=== PATIENT | female | born 1940 | race Caucasian/White ===

== ENCOUNTER → 2016-05-22 | Outpatient (CLI) | payer OTHER ==
[~2016-05-22] MED LIST: INSUPOW; [UNRECOGNIZED DRUG - OTHER]
[2016-05-22 09:39] LABS: Basophils # (auto) 0 uL; Basophils % (auto) 0.4 % (0.0-2.0); Eosinophils # (auto) 0.1 uL; Eosinophils % (auto) 1.9 % (0.0-7.0); Hematocrit 42.5 % (36.0-46.0); Hemoglobin 14.1 g/dL (12.2-16.2); Lymphocytes # (auto) 2.1 uL; Lymphocytes % (auto) 30.5 % (10.0-50.0); Mean Corpuscular Hemoglobin 29.1 pg (28.0-32.0); Mean Corpuscular Hgb Conc. 33.1 g/dL (32.0-36.0); Mean Platelet Volume 7.9 fL (7.4-10.4); Monocytes # (auto) 0.4 uL; Monocytes % (auto) 5.6 % (0.0-12.0); Neutrophils # (auto) 4.2 uL; Neutrophils % (auto) 61.6 % (37.0-80.0); Platelet Count (auto) 330 10^3/uL (140-450); Red Cell Distribution Width 14.1 % (11.6-16.0); White Blood Cell 6.9 10^3/uL (4.4-10.8)
[2016-05-22 09:53] LABS: Urine Bilirubin Negative (Negative); Urine Blood Negative /uL (Negative); Urine Color Yellow (Yellow); Urine Glucose Normal (Normal); Urine Ketone Negative (Negative); Urine Mucus FEW (None Seen); Urine RBC 5 /hpf (0 - 4); Urine Squamous Epithelial Cell MOD /hpf (<5); Urine Urobilinogen Normal (Negative); Urine pH 5.5 (5.0-8.0)
[2016-05-22 09:57] LABS: Albumin 3.7 g/dL (3.4-5.0); BUN/Creatinine Ratio 21.4; Bilirubin, Total 0.7 mg/dL (0.2-1.0); Calcium 9.7 mg/dL (8.5-10.1); Potassium 4.2 mmol/L (3.5-5.1); Total Protein 7.7 g/dL (6.4-8.2)
[2016-05-22 09:59] LABS: Urine Nitrite POSITIVE (Negative)
== END | disposition home or self-care (01) ==
LOC: LAB 07:53
PROVIDERS: ATTEND Internal Medicine
DX: I10 Essential (primary) hypertension (principal); E78.00 Pure hypercholesterolemia, unspecified; E11.9 Type 2 diabetes mellitus without complications; E55.9 Vitamin D deficiency, unspecified
CPT/HCPCS: 36415; 80053; 80061; 81001; 82043; 82306; 83036; 84443; 85025

== ENCOUNTER → 2017-10-25 | Outpatient (CLI) | payer OTHER ==
[2017-10-25 08:14] LABS: Basophils # (auto) 0 uL; Basophils % (auto) 0.4 % (0.0-2.0); Eosinophils # (auto) 0.2 uL; Eosinophils % (auto) 2.6 % (0.0-7.0); Hematocrit 41.8 % (36.0-46.0); Hemoglobin 13.7 g/dL (12.2-16.2); Lymphocytes % (auto) 31.8 % (10.0-50.0); Mean Corpuscular Hemoglobin 29.2 pg (28.0-32.0); Mean Corpuscular Hgb Conc. 32.7 g/dL (32.0-36.0); Mean Corpuscular Volume 89.4 fL (80.0-100.0); Monocytes # (auto) 0.5 uL; Monocytes % (auto) 8.4 % (0.0-12.0); Neutrophils # (auto) 3.5 uL; Neutrophils % (auto) 56.8 % (37.0-80.0); Platelet Count (auto) 247 10^3/uL (140-450); Red Blood Cells 4.68 10^6/uL (4.0-5.20); White Blood Cell 6.2 10^3/uL (4.4-10.8)
[2017-10-25 08:56] LABS: Albumin 3.6 g/dL (3.4-5.0); BUN/Creatinine Ratio 23.4; Bilirubin, Total 1.1 mg/dL (0.2-1.0); Calcium 9.3 mg/dL (8.5-10.1); Potassium 3.6 mmol/L (3.5-5.1); Total Protein 7.7 g/dL (6.4-8.2)
[2017-10-25 09:34] LABS: Urine Specific Gravity 1.027 (1.001-1.035)
[2017-10-25 09:35] LABS: Urine Blood Negative /uL (Negative)
[2017-10-25 09:36] LABS: Urine WBC 6 /hpf (0 - 5)
[2017-10-25 09:38] LABS: Urine Bacteria MODERATE /hpf (None Seen)
== END | disposition home or self-care (01) ==
LOC: LAB 07:26
DX: Z00.01 Encounter for general adult medical examination with abnormal findings (principal); E78.2 Mixed hyperlipidemia; I12.9 Hypertensive chronic kidney disease with stage 1 through stage 4 chronic kidney disease, or unspecified chronic kidney disease; E11.22 Type 2 diabetes mellitus with diabetic chronic kidney disease; N18.3 Chronic kidney disease, stage 3 (moderate); J44.9 Chronic obstructive pulmonary disease, unspecified
CPT/HCPCS: 36415; 80053; 80061; 81001; 82043; 83036; 84443; 85025

== ENCOUNTER → 2018-01-29 | Outpatient (CLI) | payer OTHER | END | disposition home or self-care (01) | LOC: LAB 11:00 | PROVIDERS: ATTEND Physician Assistant | DX: D04.62 Carcinoma in situ of skin of left upper limb, including shoulder (principal) ==

== ENCOUNTER → 2018-04-25 | Outpatient (CLI) | payer OTHER | END | disposition home or self-care (01) | LOC: XYW 08:42 | PROVIDERS: ATTEND Internal Medicine | DX: I07.1 Rheumatic tricuspid insufficiency (principal); I10 Essential (primary) hypertension; E11.9 Type 2 diabetes mellitus without complications | CPT/HCPCS: 93306 ==

== ENCOUNTER → 2018-05-13 | Outpatient (CLI) | payer OTHER ==
[~2018-05-13] VITALS: Ht 154.9 cm; Wt 62.1 kg
[~2018-05-13] MED LIST changes: +ADENOSINE 52 MG in GIVE UN-DILUTED 0 ML IV STA
[2018-05-13 09:48] VITALS: BP 151/71
== END | disposition home or self-care (01) ==
LOC: XY 08:39
PROVIDERS: ATTEND Internal Medicine
DX: Z01.818 Encounter for other preprocedural examination (principal)
CPT/HCPCS: 78452; 93017; A9500; J0153

== ENCOUNTER → 2018-06-03 | Outpatient (CLI) | payer OTHER ==
[~2018-06-03] MED LIST changes: -ADENOSINE 52 MG in GIVE UN-DILUTED 0 ML IV STA; +B-CO1TAB32 PO; +BENZ1CAP24 PO; +CALC-386 OR; +DILT240C PO; +HYDR12.56 PO; +INSDRIP SC; +INSUINJ2 SC; +LACTCAP35 OR; +LOSA-46 PO; +OMEG100078 PO
[2018-06-03 10:48] LABS: Urine Bacteria NONE SEEN /hpf (None Seen); Urine Blood TRACE /uL (Negative); Urine Hyaline Cast MOD /lpf (0 - 2); Urine Mucus FEW (None Seen); Urine Specific Gravity 1.029 (1.001-1.035); Urine WBC 83 /hpf (0 - 5)
[2018-06-03 10:50] LABS: Basophils # (auto) 0 uL; Basophils % (auto) 0.4 % (0.0-2.0); Eosinophils # (auto) 0.1 uL; Eosinophils % (auto) 0.6 % (0.0-7.0); Hematocrit 44.1 % (36.0-46.0); Hemoglobin 14.9 g/dL (12.2-16.2); Lymphocytes # (auto) 1.8 uL; Lymphocytes % (auto) 23.5 % (10.0-50.0); Mean Corpuscular Hemoglobin 30.1 pg (28.0-32.0); Mean Corpuscular Hgb Conc. 33.7 g/dL (32.0-36.0); Mean Corpuscular Volume 89.2 fL (80.0-100.0); Monocytes # (auto) 0.4 uL; Monocytes % (auto) 5.6 % (0.0-12.0); Neutrophils # (auto) 5.5 uL; Neutrophils % (auto) 69.9 % (37.0-80.0); Nucleated Red Blood Cells % 0.1 %; Platelet Count (auto) 273 10^3/uL (140-450); Red Blood Cells 4.94 10^6/uL (4.0-5.20); White Blood Cell 7.9 10^3/uL (4.4-10.8)
[2018-06-03 11:26] LABS: Potassium 4.1 mmol/L (3.5-5.1)
[2018-06-03 11:46] LABS: Albumin 3.9 g/dL (3.4-5.0); BUN/Creatinine Ratio 19.8; Bilirubin, Total 0.7 mg/dL (0.2-1.0); CRP High Sensitivity 0.28 mg/dL (< 0.3); Calcium 10.1 mg/dL (8.5-10.1); Total Protein 8.2 g/dL (6.4-8.2)
[2018-06-03 12:07] LABS: Free T4 (Free Thyroxine) 1.26 ng/dL (0.89-1.76); T3 Total 1.29 ng/mL (0.60-1.81)
== END | disposition home or self-care (01) ==
LOC: LAB 10:27
PROVIDERS: ATTEND Internal Medicine
DX: I12.9 Hypertensive chronic kidney disease with stage 1 through stage 4 chronic kidney disease, or unspecified chronic kidney disease (principal); E11.22 Type 2 diabetes mellitus with diabetic chronic kidney disease; N18.3 Chronic kidney disease, stage 3 (moderate); E78.49 Other hyperlipidemia
CPT/HCPCS: 36415; 80053; 80061; 81001; 82306; 82607; 83036; 84439; 84443; 84480; 85025; 86141

== ENCOUNTER → 2018-06-05 | Day surgery (SDC) | payer OTHER ==
[2018-06-03 12:54] LABS: INR 0.94 (0.9-1.15); Partial Thromboplastin Time 28.2 sec (23.78-33.04); Prothrombin Time 10.1 sec (9.27-12.13)
[~2018-06-05] VITALS: Ht 154.9 cm; Wt 64.9 kg
[~2018-06-05] MED LIST changes: +GLYCOPYRROLATE 0.2 MG/ML 1ML VIAL IV ONE; -INSUPOW; +MIDAZOLAM HCL 1MG/1ML-2 ML VIAL ONE; +NEOSTIGMINE 1 MG/ML INJ (10mg/10ML VIAL) IV ONE; +ONDANSETRON HCL 4 MG/2 ML VIAL IV ONE; +PROPOFOL 10 MG/ML 20 ML IV ONE; +ROCURONIUM 10MG/ML 10ML VIAL IV ONE; -[UNRECOGNIZED DRUG - OTHER]; +ceFAZolin 1GM/50ML 50 ML IV ONE; +ePHEDrine SULFATE 50 MG/ML AMP IV PRN; +fentaNYL CITRATE 100 MCG/2 ML VL IV PRN; +fentaNYL CITRATE 100 MCG/2 ML VL ONE; +hydrALAZINE HCL 20 MG/ML VL IV PRN
[2018-06-05 13:05] VITALS: BP 124/57
== END | disposition home or self-care (01) ==
LOC: SUR 09:36
PROVIDERS: ATTEND Surgery
DX: D04.62 Carcinoma in situ of skin of left upper limb, including shoulder (principal); L57.0 Actinic keratosis; I10 Essential (primary) hypertension; Z98.890 Other specified postprocedural states; Z79.899 Other long term (current) drug therapy
CPT/HCPCS: 11604; 36415; 82962; 85610; 85730; J0690; J2250; J2704; J3010

== ENCOUNTER 2018-06-06 10:45 | Emergency (ER) | payer OTHER ==
[~2018-06-06] VITALS: Ht 154.9 cm; Wt 64.9 kg
[~2018-06-06 10:45] MED LIST changes: -GLYCOPYRROLATE 0.2 MG/ML 1ML VIAL IV ONE; -MIDAZOLAM HCL 1MG/1ML-2 ML VIAL ONE; -NEOSTIGMINE 1 MG/ML INJ (10mg/10ML VIAL) IV ONE; -ONDANSETRON HCL 4 MG/2 ML VIAL IV ONE; -PROPOFOL 10 MG/ML 20 ML IV ONE; -ROCURONIUM 10MG/ML 10ML VIAL IV ONE; -ceFAZolin 1GM/50ML 50 ML IV ONE; -ePHEDrine SULFATE 50 MG/ML AMP IV PRN; -fentaNYL CITRATE 100 MCG/2 ML VL IV PRN; -fentaNYL CITRATE 100 MCG/2 ML VL ONE; -hydrALAZINE HCL 20 MG/ML VL IV PRN
[2018-06-06 11:45] LABS: Basophils # (auto) 0 uL; Basophils % (auto) 0.2 % (0.0-2.0); Eosinophils # (auto) 0 uL; Eosinophils % (auto) 0.1 % (0.0-7.0); Hematocrit 39.6 % (36.0-46.0); Hemoglobin 13.3 g/dL (12.2-16.2); Lymphocytes # (auto) 0.9 uL; Mean Corpuscular Hgb Conc. 33.5 g/dL (32.0-36.0); Mean Corpuscular Volume 89.6 fL (80.0-100.0); Monocytes # (auto) 0.3 uL; Monocytes % (auto) 3.2 % (0.0-12.0); Neutrophils # (auto) 9.6 uL; Neutrophils % (auto) 88.5 % (37.0-80.0); Platelet Count (auto) 246 10^3/uL (140-450); Red Blood Cells 4.42 10^6/uL (4.0-5.20); Red Cell Distribution Width 14.1 % (11.8-14.3); White Blood Cell 10.8 10^3/uL (4.4-10.8)
[2018-06-06 12:05] LABS: Albumin 3.4 g/dL (3.4-5.0); Calcium 9.1 mg/dL (8.5-10.1); Potassium 4.1 mmol/L (3.5-5.1)
[2018-06-06 12:07] LABS: BUN/Creatinine Ratio 17.6
[2018-06-06 12:12] LABS: Bilirubin, Total 0.7 mg/dL (0.2-1.0); Total Protein 7.3 g/dL (6.4-8.2)
[2018-06-06 13:47] LABS: Urine Bacteria MOD /hpf (None Seen); Urine Blood Negative /uL (Negative); Urine Specific Gravity 1.011 (1.001-1.035); Urine WBC 2 /hpf (0 - 5)
[2018-06-06 14:32] VITALS: BP 135/58
== END 2018-06-06 14:41 | disposition home or self-care (01) ==
LOC: ER 10:49
DX: E11.649 Type 2 diabetes mellitus with hypoglycemia without coma (principal); I10 Essential (primary) hypertension; Z90.710 Acquired absence of both cervix and uterus; Z90.89 Acquired absence of other organs; Z85.828 Personal history of other malignant neoplasm of skin
CPT/HCPCS: 36415; 70450; 80053; 81001; 82962; 85025

== ENCOUNTER → 2021-08-05 | Outpatient (CLI) | payer OTHER ==
[~2021-08-05] MED LIST changes: -BENZ1CAP24 PO; +BENZ200C64 PO; +DILT-29 PO; -DILT240C PO; -LOSA-46 PO; +LOSA-69 PO
[2021-08-05 07:39] LABS: Basophils # (auto) 0 10 ^3/uL (0-0.2); Basophils % (auto) 0.5 % (0.0-2.0); Eosinophils # (auto) 0.1 10 ^3/uL (0-0.8); Eosinophils % (auto) 2.3 % (0.0-7.0); Hematocrit 38.6 % (36.0-46.0); Hemoglobin 13.6 g/dL (12.2-16.2); Lymphocytes # (auto) 2.2 10 ^3/uL (0.4-5.4); Mean Corpuscular Hgb Conc. 35.3 g/dL (32.0-36.0); Mean Corpuscular Volume 87.7 fL (80.0-100.0); Monocytes # (auto) 0.5 10 ^3/uL (0-1.3); Monocytes % (auto) 7.1 % (0.0-12.0); Neutrophils # (auto) 3.6 10 ^3/uL (1.6-8.6); Neutrophils % (auto) 56.1 % (37.0-80.0); Red Cell Distribution Width 13.7 % (11.8-14.3); White Blood Cell 6.4 10^3/uL (4.4-10.8)
[2021-08-05 07:56] LABS: Albumin 3.5 g/dL (3.4-5.0); Calcium 9.7 mg/dL (8.5-10.1)
[2021-08-05 08:01] LABS: BUN/Creatinine Ratio 23.8
[2021-08-05 08:02] LABS: Bilirubin, Total 0.6 mg/dL (0.2-1.0); Total Protein 7.3 g/dL (6.4-8.2)
== END | disposition home or self-care (01) ==
LOC: LAB 07:19
PROVIDERS: ATTEND Nurse Practitioner Family
DX: I12.9 Hypertensive chronic kidney disease with stage 1 through stage 4 chronic kidney disease, or unspecified chronic kidney disease (principal); E11.22 Type 2 diabetes mellitus with diabetic chronic kidney disease; N18.9 Chronic kidney disease, unspecified; E78.49 Other hyperlipidemia
CPT/HCPCS: 36415; 80053; 80061; 82043; 83036; 85025

== ENCOUNTER → 2023-01-15 | Outpatient (CLI) | payer OTHER ==
[~2023-01-15] MED LIST changes: -HYDR12.56 PO; +HYDR12.59 PO; -LOSA-69 PO; +LOSA50TA46 PO; +OMEG-20 PO; -OMEG100078 PO
[2023-01-15 07:41] LABS: Basophils # (auto) 0 10 ^3/uL (0-0.2); Basophils % (auto) 0.4 % (0.0-2.0); Eosinophils # (auto) 0.1 10 ^3/uL (0-0.8); Eosinophils % (auto) 1.7 % (0.0-7.0); Hematocrit 39.8 % (36.0-46.0); Hemoglobin 13.5 g/dL (12.2-16.2); Lymphocytes # (auto) 2.2 10 ^3/uL (0.4-5.4); Lymphocytes % (auto) 29.5 % (10.0-50.0); Mean Corpuscular Hemoglobin 30.9 pg (28.0-32.0); Mean Corpuscular Hgb Conc. 33.9 g/dL (32.0-36.0); Mean Corpuscular Volume 91.1 fL (80.0-100.0); Monocytes # (auto) 0.5 10 ^3/uL (0-1.3); Monocytes % (auto) 6.8 % (0.0-12.0); Neutrophils # (auto) 4.6 10 ^3/uL (1.6-8.6); Neutrophils % (auto) 61.6 % (37.0-80.0); Red Blood Cells 4.36 10^6/uL (4.0-5.20); Red Cell Distribution Width 13.9 % (11.8-14.3); White Blood Cell 7.4 10^3/uL (4.4-10.8)
[2023-01-15 08:19] LABS: Creatinine, Urine < 3.00 mg/dL (30.0-125.0)
[2023-01-15 09:21] LABS: Alanine Aminotransferase 15 U/L (7-40); Albumin 4.3 g/dL (3.2-4.8); Alkaline Phosphatase 122 U/L (46-116); Anion Gap 10 (5-15); Aspartate Aminotransferase 14 U/L (13-40); BUN/Creatinine Ratio 21.1 (10.0-20.0); Blood Urea Nitrogen 23 mg/dL (9-23); Calcium 9.7 mg/dL (8.7-10.4); Carbon Dioxide 24 mmol/L (20-30); Chloride 106 mmol/L (98-107); Glucose 116 mg/dL (74-106); Potassium 3.8 mmol/L (3.5-5.1); Sodium 140 mmol/L (136-145)
[2023-01-15 09:22] LABS: Total Protein 7.1 g/dL (5.7-8.2)
[2023-01-15 12:23] LABS: Cholesterol 150 mg/dL (< 200); HDL Cholesterol 63 mg/dL (40-59); LDL Cholesterol 72 mg/dL (< 100); Triglycerides 91 mg/dL (< 150)
== END | disposition home or self-care (01) ==
LOC: LAB 07:27
PROVIDERS: ATTEND Nurse Practitioner Family
DX: E11.42 Type 2 diabetes mellitus with diabetic polyneuropathy (principal); I10 Essential (primary) hypertension
CPT/HCPCS: 36415; 80053; 80061; 82043; 82570; 83036; 84439; 84443; 85025

== ENCOUNTER 2024-12-25 08:50 | Outpatient (CLI) | payer MEDICAID ==
[~2024-12-25 08:50] MED LIST changes: +LOSA-534 PO; -LOSA50TA46 PO
[2024-12-25 09:58] LABS: Hematocrit 39.8 % (36.0-46.0); Hemoglobin 13.5 g/dL (12.2-16.2); Mean Corpuscular Hemoglobin 30.0 pg (28.0-32.0); Mean Corpuscular Volume 88.1 fL (80.0-100.0); Nucleated Red Blood Cells % 0.1 %
[2024-12-25 10:31] LABS: Alanine Aminotransferase 13 U/L (7-40); Anion Gap 11 (5-15); Calcium 9.9 mg/dL (8.7-10.4); Carbon Dioxide 27 mmol/L (20-31); Chloride 104 mmol/L (98-107); Potassium 4.1 mmol/L (3.5-5.1); Sodium 142 mmol/L (136-145)
[2024-12-25 10:33] LABS: Albumin 4.3 g/dL (3.2-4.8); Alkaline Phosphatase 136 U/L (46-116); Glucose 90 mg/dL (74-106)
[2024-12-25 10:34] LABS: BUN/Creatinine Ratio 13.9 (10.0-20.0); Blood Urea Nitrogen 17 mg/dL (9-23); Total Protein 7.2 g/dL (5.7-8.2); Triglycerides 65 mg/dL (< 150)
[2024-12-25 10:35] LABS: Cholesterol 138 mg/dL (< 200)
[2024-12-25 10:36] LABS: Bilirubin, Total 0.9 mg/dL (0.2-1.0); HDL Cholesterol 59 mg/dL (40-59)
[2024-12-25 10:37] LABS: Microalb/Creat Ratio, Urine 37.0
== END 2024-12-25 17:00 | disposition home or self-care (01) ==
LOC: LAB 08:50
PROVIDERS: ATTEND Nurse Practitioner Family
DX: E11.22 Type 2 diabetes mellitus with diabetic chronic kidney disease (principal); N18.31 Chronic kidney disease, stage 3a; E78.49 Other hyperlipidemia; Z00.01 Encounter for general adult medical examination with abnormal findings
CPT/HCPCS: 36415; 80053; 80061; 82043; 82570; 83036; 84443; 85025